=== PATIENT | female | born 1970 | race Caucasian/White ===

== ENCOUNTER 2017-08-20 12:58 | Inpatient (IN) | payer MEDICAID ==
[~2017-08-20] VITALS: Ht 160 cm; Wt 123.4 kg
[2017-08-20] MEDS ORDERED: ACETAMINOPHEN 500 MG TAB PO ONE ×2 (13:18→13:30)
[2017-08-20 14:52] LABS: Hematocrit 42.4 % (36.0-46.0); Hemoglobin 14.1 g/dL (12.2-16.2); Mean Corpuscular Hemoglobin 28.1 pg (28.0-32.0); Mean Corpuscular Hgb Conc. 33.3 g/dL (32.0-36.0); Mean Corpuscular Volume 84.5 fL (80.0-100.0); Platelet Count (auto) 292 10^3/uL (140-450); Red Blood Cells 5.02 10^6/uL (4.0-5.20); Red Cell Distribution Width 14.6 % (11.8-14.3); White Blood Cell 27.8 10^3/uL (4.4-10.8)
[2017-08-20] MEDS ORDERED: cefTRIAXone 1GM/10ml IVPUSH 10 ML IV ONE (15:00)
[2017-08-20] MEDS ORDERED: AZITHROMYCIN 500MG/ 250ML 250 ML IV ONE (15:00)
[2017-08-20 15:10] LABS: Albumin 2.5 g/dL (3.4-5.0); BUN/Creatinine Ratio 18.9; Bilirubin, Total 0.8 mg/dL (0.2-1.0); Calcium 9.2 mg/dL (8.5-10.1); Potassium 3.5 mmol/L (3.5-5.1); Total Protein 7.6 g/dL (6.4-8.2)
[2017-08-20 15:34] LABS: Basophils % (manual) 0 (0.0-2.0); Blast Cells 0; Eosinophils % (manual) 0 (0-7); Metamyelocytes % 0; Myelocytes % 0; Promyelocytes % 0; Reactive Lymphocytes 0
[2017-08-20] MEDS ORDERED: OSELTAMIVIR 75 MG CAP PO ONE ×2 (15:57→16:00)
[2017-08-20 17:00] LABS: Band Neutrophils % (manual) 6; Lymphocytes % (manual) 10 (10.0-50.0); Monocytes % (manual) 2 (0-12)
[2017-08-20] MEDS ORDERED: SODIUM CHLORIDE 0.9% 1,000 ML IV ONE ×2 (18:00)
[2017-08-20] MEDS ORDERED: DEXTROSE (50%) 50ML SYRG IV PRN (18:30)
[2017-08-20] MEDS ORDERED: IBUPROFEN 400 MG TAB PO PRN (18:30)
[2017-08-20] MEDS ORDERED: SODIUM CHLORIDE 0.9% 1,000 ML IV SCH (18:51)
[2017-08-20] MEDS ORDERED: ONDANSETRON HCL 4 MG/2 ML VIAL IV PRN (19:00)
[2017-08-20] MEDS ORDERED: HYDROcodone-ACET 5/325MG TAB PO PRN (19:00)
[2017-08-20] MEDS ORDERED: MORPHINE SULFATE 4 MG/ML SYR/VIAL IV PRN (19:00)
[2017-08-20] MEDS ORDERED: DOCUSATE SOD 100 MG CAP PO PRN (19:00)
[2017-08-20 21:00] VITALS: BP 123/67
[2017-08-20 22:00] VITALS: BP 120/67
[2017-08-20] MEDS ORDERED: PREGABALIN CAPSULE 75 MG CAP PO SCH (22:00)
[2017-08-20] MEDS: ACCU-CHEK COMFORT CURVE STRIP VI SCH (22:00)
[2017-08-20] MEDS: InsuLIN REG 1unit/0.01ml Soln (100units/ml) SC SCH (22:00)
[2017-08-20] MEDS: ACETAMINOPHEN 325 MG TAB PO PRN (22:07)
[2017-08-20] MEDS: FAMOTIDINE 20 MG TAB PO SCH (22:13)
[2017-08-20 22:21] LABS: Lactic Acid w/Reflex 2.7 mmol/L (0.4-2.0)
[2017-08-21] VITALS (7 sets, daily range): BP systolic 81–123; BP diastolic 60–71
[2017-08-21] MEDS: ALBUTEROL SULF 2.5 MG/0.5ML(0.5%) NEB SOLN NEB SCH ×4 (00:25→18:59)
[2017-08-21] MEDS: IPRATROPIUM BROM 0.5 MG/2.5ML INH SOL NEB SCH ×4 (00:25→18:59)
[2017-08-21 01:20] LABS: Urine Bacteria FEW /hpf (None Seen); Urine Blood Negative /uL (Negative); Urine Specific Gravity 1.015 (1.001-1.035); Urine WBC 1 /hpf (0 - 5)
[2017-08-21] MEDS ORDERED: SODIUM CHLORIDE 0.9% 500 ML IV ONE (02:15)
[2017-08-21] MEDS ORDERED: SODIUM CHLORIDE 0.9% 1,000 ML IV SCH (02:15)
[2017-08-21 06:01] LABS: Basophils # (auto) 0.1 uL; Basophils % (auto) 0.3 % (0.0-2.0); Eosinophils # (auto) 0.1 uL; Eosinophils % (auto) 0.2 % (0.0-7.0); Hemoglobin 12.9 g/dL (12.2-16.2); Lymphocytes # (auto) 2.2 uL; Mean Corpuscular Hemoglobin 28.4 pg (28.0-32.0); Mean Corpuscular Hgb Conc. 33.2 g/dL (32.0-36.0); Mean Corpuscular Volume 85.7 fL (80.0-100.0); Monocytes # (auto) 1.9 uL; Monocytes % (auto) 7.1 % (0.0-12.0); Neutrophils % (auto) 84.4 % (37.0-80.0); Nucleated Red Blood Cells % 0.1 %; Platelet Count (auto) 265 10^3/uL (140-450); Red Blood Cells 4.55 10^6/uL (4.0-5.20); Red Cell Distribution Width 14.7 % (11.8-14.3); White Blood Cell 27.3 10^3/uL (4.4-10.8)
[2017-08-21] MEDS ORDERED: PREG50CA PO (06:06)
[2017-08-21 06:18] LABS: Albumin 2.2 g/dL (3.4-5.0); BUN/Creatinine Ratio 16.3; Bilirubin, Total 0.6 mg/dL (0.2-1.0); Calcium 8.5 mg/dL (8.5-10.1); Potassium 4.2 mmol/L (3.5-5.1)
[2017-08-21] MEDS: OSELTAMIVIR 75 MG CAP PO SCH ×2 (06:35→18:00)
[2017-08-21] MEDS: InsuLIN REG 1unit/0.01ml Soln (100units/ml) SC SCH ×4 (07:00→23:56)
[2017-08-21] MEDS ORDERED: PREGABALIN 25 MG CAP PO SCH (07:00)
[2017-08-21] MEDS: ACCU-CHEK COMFORT CURVE STRIP VI SCH ×4 (07:00→22:00)
[2017-08-21] MEDS: Boost Glucose Control 8 Ounces PO SCH ×3 (08:00→18:00)
[2017-08-21] MEDS: AZITHROMYCIN 500MG/ 250ML 250 ML IV SCH (10:32)
[2017-08-21] MEDS: cefTRIAXone 1GM/10ml IVPUSH 10 ML IV SCH (10:32)
[2017-08-21] MEDS: FAMOTIDINE 20 MG TAB PO SCH ×2 (10:33→23:56)
[2017-08-21] MEDS: LORATADINE 10 MG TAB PO SCH (10:33)
[2017-08-21] MEDS: B-COMPLEX W/ C & FOLIC ACID(NEPHROVITE TAB) PO SCH (10:33)
[2017-08-21] MEDS: MULTIPLE VITAMIN TAB PO SCH (10:33)
[2017-08-21] MEDS ORDERED: FUROSEMIDE 20 MG/2 ML VIAL IV ONE (12:45)
[2017-08-21] MEDS: methylPREDNISolone SOD SUCC 40 MG/ML VL IV SCH ×2 (13:07→20:51)
[2017-08-21] MEDS ORDERED: SODIUM CHLORIDE 0.9% 250 ML IV ONE (17:15)
[2017-08-21] MEDS: PREGABALIN CAPSULE 75 MG CAP PO SCH (23:56)
[2017-08-22] VITALS (7 sets, daily range): BP systolic 95–145; BP diastolic 60–87
[2017-08-22] MEDS: ALBUTEROL SULF 2.5 MG/0.5ML(0.5%) NEB SOLN NEB SCH ×4 (00:21→19:01)
[2017-08-22] MEDS: IPRATROPIUM BROM 0.5 MG/2.5ML INH SOL NEB SCH ×4 (00:21→19:00)
[2017-08-22] MEDS: methylPREDNISolone SOD SUCC 40 MG/ML VL IV SCH ×2 (04:35→12:48)
[2017-08-22 06:39] LABS: Hematocrit 39.7 % (36.0-46.0); Hemoglobin 13.3 g/dL (12.2-16.2); Mean Corpuscular Hemoglobin 28.5 pg (28.0-32.0); Mean Corpuscular Hgb Conc. 33.4 g/dL (32.0-36.0); Mean Corpuscular Volume 85.3 fL (80.0-100.0); Platelet Count (auto) 285 10^3/uL (140-450); Red Blood Cells 4.65 10^6/uL (4.0-5.20); White Blood Cell 12.7 10^3/uL (4.4-10.8)
[2017-08-22 06:56] LABS: Calcium 9.2 mg/dL (8.5-10.1); Potassium 4.3 mmol/L (3.5-5.1)
[2017-08-22 06:57] LABS: Basophils % (manual) 0 (0.0-2.0); Blast Cells 0; Eosinophils % (manual) 0 (0-7); Metamyelocytes % 0; Myelocytes % 0; Promyelocytes % 0; Reactive Lymphocytes 0
[2017-08-22] MEDS: OSELTAMIVIR 75 MG CAP PO SCH ×2 (07:04→18:44)
[2017-08-22] MEDS: PREGABALIN 25 MG CAP PO SCH (07:04)
[2017-08-22 07:05] LABS: Alcohol, Urine < 3.0 mg/dL (0-5); Amphetamine Screen, Urine NEGATIVE (NEGATIVE); Barbiturate Scree,Urine NEGATIVE (NEGATIVE); Benzodiazephine Screen, Urine NEGATIVE (NEGATIVE); Cannabinoid Screen, Urine NEGATIVE (NEGATIVE); Cocaine Screen, Urine NEGATIVE (NEGATIVE); Opiate Scree,Urine NEGATIVE (NEGATIVE); Phencyclidine Screen, Urine NEGATIVE (NEGATIVE)
[2017-08-22] MEDS: InsuLIN REG 1unit/0.01ml Soln (100units/ml) SC SCH ×4 (07:19→22:22)
[2017-08-22] MEDS: ACCU-CHEK COMFORT CURVE STRIP VI SCH ×4 (07:19→22:22)
[2017-08-22] MEDS: Boost Glucose Control 8 Ounces PO SCH ×3 (08:00→18:27)
[2017-08-22] MEDS: cefTRIAXone 1GM/10ml IVPUSH 10 ML IV SCH (09:00)
[2017-08-22] MEDS: AZITHROMYCIN 500MG/ 250ML 250 ML IV SCH (11:16)
[2017-08-22] MEDS: B-COMPLEX W/ C & FOLIC ACID(NEPHROVITE TAB) PO SCH (11:24)
[2017-08-22] MEDS: MULTIPLE VITAMIN TAB PO SCH (11:24)
[2017-08-22] MEDS: LORATADINE 10 MG TAB PO SCH (11:24)
[2017-08-22] MEDS: FAMOTIDINE 20 MG TAB PO SCH ×2 (11:24→22:21)
[2017-08-22 11:25] LABS: Band Neutrophils % (manual) 6; Lymphocytes % (manual) 16 (10.0-50.0); Monocytes % (manual) 6 (0-12)
[2017-08-22] MEDS ORDERED: IOHEXOL 350 MG/ML 100ML IJ ONE (15:41)
[2017-08-22 16:27] LABS: INR 0.92 (0.9-1.15); Partial Thromboplastin Time 26.6 sec (22.64-33.71)
[2017-08-22] MEDS: ACETAMINOPHEN 325 MG TAB PO PRN (20:18)
[2017-08-22] MEDS: PREGABALIN CAPSULE 75 MG CAP PO SCH (22:21)
[2017-08-22] MEDS: TEMAZEPAM 15 MG CAP PO PRN (22:44)
[2017-08-23] MEDS: IPRATROPIUM BROM 0.5 MG/2.5ML INH SOL NEB SCH ×5 (00:14→23:43)
[2017-08-23] MEDS: ALBUTEROL SULF 2.5 MG/0.5ML(0.5%) NEB SOLN NEB SCH ×5 (00:14→23:43)
[2017-08-23] MEDS: methylPREDNISolone SOD SUCC 40 MG/ML VL IV SCH ×3 (01:46→23:33)
[2017-08-23 05:30] VITALS: BP 121/80
[2017-08-23 06:14] LABS: Hematocrit 39.8 % (36.0-46.0); Hemoglobin 13.1 g/dL (12.2-16.2); Mean Corpuscular Hemoglobin 28.1 pg (28.0-32.0); Mean Corpuscular Volume 85.4 fL (80.0-100.0); Platelet Count (auto) 335 10^3/uL (140-450); Red Blood Cells 4.66 10^6/uL (4.0-5.20); Red Cell Distribution Width 15.3 % (11.8-14.3); White Blood Cell 14.7 10^3/uL (4.4-10.8)
[2017-08-23 06:23] LABS: Basophils % (manual) 0 (0.0-2.0); Blast Cells 0; Eosinophils % (manual) 0 (0-7); Myelocytes % 0; Promyelocytes % 0; Reactive Lymphocytes 0
[2017-08-23 06:30] LABS: BUN/Creatinine Ratio 30.8; Calcium 9.1 mg/dL (8.5-10.1); Potassium 4.6 mmol/L (3.5-5.1)
[2017-08-23] MEDS: OSELTAMIVIR 75 MG CAP PO SCH ×2 (07:06→17:47)
[2017-08-23] MEDS: PREGABALIN 25 MG CAP PO SCH (07:07)
[2017-08-23] MEDS: ACCU-CHEK COMFORT CURVE STRIP VI SCH ×4 (07:07→21:45)
[2017-08-23] MEDS: InsuLIN REG 1unit/0.01ml Soln (100units/ml) SC SCH ×4 (07:07→21:54)
[2017-08-23] MEDS: Boost Glucose Control 8 Ounces PO SCH ×3 (08:34→17:47)
[2017-08-23 09:00] VITALS: BP 124/72
[2017-08-23] MEDS: B-COMPLEX W/ C & FOLIC ACID(NEPHROVITE TAB) PO SCH (09:04)
[2017-08-23] MEDS: FAMOTIDINE 20 MG TAB PO SCH ×2 (09:04→21:38)
[2017-08-23] MEDS: LORATADINE 10 MG TAB PO SCH (09:04)
[2017-08-23] MEDS: cefTRIAXone 1GM/10ml IVPUSH 10 ML IV SCH (09:04)
[2017-08-23] MEDS: MULTIPLE VITAMIN TAB PO SCH (09:04)
[2017-08-23] MEDS: AZITHROMYCIN 500MG/ 250ML 250 ML IV SCH (09:04)
[2017-08-23 10:06] LABS: Band Neutrophils % (manual) 4; Lymphocytes % (manual) 13 (10.0-50.0); Metamyelocytes % 1; Monocytes % (manual) 10 (0-12)
[2017-08-23 13:00] VITALS: BP 131/84
[2017-08-23] MEDS: LEVOFLOXACIN 500MG 100 ML IV SCH (14:18)
[2017-08-23 17:34] VITALS: BP 144/90
[2017-08-23] MEDS: ALPRAZolam 0.5 MG TAB PO PRN (21:37)
[2017-08-23] MEDS: PREGABALIN CAPSULE 75 MG CAP PO SCH (21:37)
[2017-08-23 22:30] VITALS: BP 138/98
[2017-08-24] MEDS: ACETAMINOPHEN 325 MG TAB PO PRN (01:20)
[2017-08-24 04:59] VITALS: BP 125/78
[2017-08-24] MEDS: IPRATROPIUM BROM 0.5 MG/2.5ML INH SOL NEB SCH ×3 (05:40→18:23)
[2017-08-24] MEDS: ALBUTEROL SULF 2.5 MG/0.5ML(0.5%) NEB SOLN NEB SCH ×3 (05:40→18:23)
[2017-08-24 05:55] LABS: Hemoglobin 13.7 g/dL (12.2-16.2); Mean Corpuscular Hemoglobin 28.7 pg (28.0-32.0); Mean Corpuscular Hgb Conc. 33.5 g/dL (32.0-36.0); Mean Corpuscular Volume 85.7 fL (80.0-100.0); Platelet Count (auto) 355 10^3/uL (140-450); Red Blood Cells 4.79 10^6/uL (4.0-5.20); Red Cell Distribution Width 14.8 % (11.8-14.3); White Blood Cell 12.5 10^3/uL (4.4-10.8)
[2017-08-24 06:19] LABS: BUN/Creatinine Ratio 29.6; Calcium 8.7 mg/dL (8.5-10.1); Potassium 4.4 mmol/L (3.5-5.1)
[2017-08-24] MEDS: OSELTAMIVIR 75 MG CAP PO SCH ×2 (06:22→17:23)
[2017-08-24] MEDS: PREGABALIN 25 MG CAP PO SCH (06:22)
[2017-08-24] MEDS: ACCU-CHEK COMFORT CURVE STRIP VI SCH ×4 (06:24→21:31)
[2017-08-24 06:33] LABS: Basophils % (manual) 0 (0.0-2.0)
[2017-08-24 06:34] LABS: Blast Cells 0; Promyelocytes % 0; Reactive Lymphocytes 0
[2017-08-24] MEDS: InsuLIN REG 1unit/0.01ml Soln (100units/ml) SC SCH ×4 (06:34→21:31)
[2017-08-24] MEDS: Boost Glucose Control 8 Ounces PO SCH ×3 (08:00→17:24)
[2017-08-24 08:56] LABS: Band Neutrophils % (manual) 5; Eosinophils % (manual) 1 (0-7); Lymphocytes % (manual) 21 (10.0-50.0); Metamyelocytes % 1; Monocytes % (manual) 3 (0-12); Myelocytes % 1
[2017-08-24 09:00] VITALS: BP 128/83
[2017-08-24] MEDS: FAMOTIDINE 20 MG TAB PO SCH ×2 (09:57→21:18)
[2017-08-24] MEDS: MULTIPLE VITAMIN TAB PO SCH (09:57)
[2017-08-24] MEDS: B-COMPLEX W/ C & FOLIC ACID(NEPHROVITE TAB) PO SCH (09:57)
[2017-08-24] MEDS: LEVOFLOXACIN 500MG 100 ML IV SCH (09:57)
[2017-08-24] MEDS: LORATADINE 10 MG TAB PO SCH (09:57)
[2017-08-24] MEDS: methylPREDNISolone SOD SUCC 40 MG/ML VL IV SCH (12:19)
[2017-08-24 12:30] VITALS: BP 114/69
[2017-08-24 16:36] VITALS: BP 119/65
[2017-08-24] MEDS: TEMAZEPAM 15 MG CAP PO PRN (21:18)
[2017-08-24] MEDS: PREGABALIN CAPSULE 75 MG CAP PO SCH (21:18)
[2017-08-24 22:00] VITALS: BP 110/65
[2017-08-25] MEDS: ALBUTEROL SULF 2.5 MG/0.5ML(0.5%) NEB SOLN NEB SCH ×4 (00:30→18:34)
[2017-08-25] MEDS: IPRATROPIUM BROM 0.5 MG/2.5ML INH SOL NEB SCH ×4 (00:30→18:34)
[2017-08-25 01:52] VITALS: BP 110/65
[2017-08-25 05:00] VITALS: BP 117/86
[2017-08-25] MEDS: PREGABALIN 25 MG CAP PO SCH (05:52)
[2017-08-25] MEDS: InsuLIN REG 1unit/0.01ml Soln (100units/ml) SC SCH ×4 (05:52→22:37)
[2017-08-25] MEDS: OSELTAMIVIR 75 MG CAP PO SCH (05:52)
[2017-08-25] MEDS: ACCU-CHEK COMFORT CURVE STRIP VI SCH ×4 (05:53→22:37)
[2017-08-25 06:15] LABS: BUN/Creatinine Ratio 29.3; Calcium 8.8 mg/dL (8.5-10.1); Potassium 4.3 mmol/L (3.5-5.1)
[2017-08-25 07:47] LABS: Hematocrit 44.2 % (36.0-46.0); Hemoglobin 14.5 g/dL (12.2-16.2); Mean Corpuscular Hgb Conc. 32.7 g/dL (32.0-36.0); Mean Corpuscular Volume 85.6 fL (80.0-100.0); Platelet Count (auto) 381 10^3/uL (140-450); Red Blood Cells 5.16 10^6/uL (4.0-5.20); Red Cell Distribution Width 14.9 % (11.8-14.3)
[2017-08-25 08:17] LABS: Basophils % (manual) 0 (0.0-2.0); Blast Cells 0; Promyelocytes % 0
[2017-08-25 09:00] VITALS: BP 135/75
[2017-08-25] MEDS: methylPREDNISolone SOD SUCC 40 MG/ML VL IV SCH (09:19)
[2017-08-25] MEDS: B-COMPLEX W/ C & FOLIC ACID(NEPHROVITE TAB) PO SCH (09:19)
[2017-08-25] MEDS: LEVOFLOXACIN 500MG 100 ML IV SCH (09:19)
[2017-08-25] MEDS: MULTIPLE VITAMIN TAB PO SCH (09:19)
[2017-08-25] MEDS: LORATADINE 10 MG TAB PO SCH (09:19)
[2017-08-25] MEDS: Boost Glucose Control 8 Ounces PO SCH ×3 (09:20→17:24)
[2017-08-25] MEDS: FAMOTIDINE 20 MG TAB PO SCH ×2 (09:20→22:18)
[2017-08-25 11:15] LABS: Band Neutrophils % (manual) 2; Eosinophils % (manual) 2 (0-7); Lymphocytes % (manual) 26 (10.0-50.0); Metamyelocytes % 1; Monocytes % (manual) 1 (0-12); Myelocytes % 2; Reactive Lymphocytes 1
[2017-08-25] MEDS ORDERED: LEVOFLOXACIN 250MG 50 ML IV ONE (12:00)
[2017-08-25 13:00] VITALS: BP 128/85
[2017-08-25 16:00] VITALS: BP 121/80
[2017-08-25] MEDS: CEFEPIME HYDROCHLORIDE 2 GM in SODIUM CHL 0.9% 50 ML IV SCH (17:03)
[2017-08-25 22:00] VITALS: BP 128/70
[2017-08-25] MEDS: TEMAZEPAM 15 MG CAP PO PRN (22:18)
[2017-08-25] MEDS: PREGABALIN CAPSULE 75 MG CAP PO SCH (22:18)
[2017-08-26] MEDS: CEFEPIME HYDROCHLORIDE 2 GM in SODIUM CHL 0.9% 50 ML IV SCH ×2 (01:14→12:53)
[2017-08-26 05:00] VITALS: BP 131/71
[2017-08-26] MEDS: IPRATROPIUM BROM 0.5 MG/2.5ML INH SOL NEB SCH ×4 (06:00→18:42)
[2017-08-26] MEDS: ALBUTEROL SULF 2.5 MG/0.5ML(0.5%) NEB SOLN NEB SCH ×4 (06:00→18:42)
[2017-08-26 06:17] LABS: Basophils # (auto) 0.1 uL; Basophils % (auto) 0.8 % (0.0-2.0); Eosinophils # (auto) 0.2 uL; Eosinophils % (auto) 1.3 % (0.0-7.0); Hematocrit 46.4 % (36.0-46.0); Hemoglobin 15.2 g/dL (12.2-16.2); Lymphocytes # (auto) 4.6 uL; Lymphocytes % (auto) 31.3 % (10.0-50.0); Mean Corpuscular Hemoglobin 28.2 pg (28.0-32.0); Mean Corpuscular Hgb Conc. 32.8 g/dL (32.0-36.0); Monocytes # (auto) 0.5 uL; Monocytes % (auto) 3.6 % (0.0-12.0); Neutrophils # (auto) 9.3 uL; Nucleated Red Blood Cells % 0.1 %; Platelet Count (auto) 410 10^3/uL (140-450); Red Blood Cells 5.39 10^6/uL (4.0-5.20); Red Cell Distribution Width 14.9 % (11.8-14.3); White Blood Cell 14.8 10^3/uL (4.4-10.8)
[2017-08-26 06:28] LABS: Potassium 4.3 mmol/L (3.5-5.1)
[2017-08-26 06:30] LABS: BUN/Creatinine Ratio 27.6; Calcium 8.9 mg/dL (8.5-10.1)
[2017-08-26] MEDS: InsuLIN REG 1unit/0.01ml Soln (100units/ml) SC SCH ×4 (06:31→21:43)
[2017-08-26] MEDS: ACCU-CHEK COMFORT CURVE STRIP VI SCH ×4 (06:31→21:41)
[2017-08-26] MEDS: PREGABALIN 25 MG CAP PO SCH (06:46)
[2017-08-26 09:00] VITALS: BP 114/70
[2017-08-26] MEDS: Boost Glucose Control 8 Ounces PO SCH ×3 (09:39→18:00)
[2017-08-26] MEDS: LORATADINE 10 MG TAB PO SCH (09:39)
[2017-08-26] MEDS: MULTIPLE VITAMIN TAB PO SCH (09:39)
[2017-08-26] MEDS: B-COMPLEX W/ C & FOLIC ACID(NEPHROVITE TAB) PO SCH (09:39)
[2017-08-26] MEDS: FAMOTIDINE 20 MG TAB PO SCH ×2 (09:39→21:34)
[2017-08-26] MEDS: methylPREDNISolone SOD SUCC 40 MG/ML VL IV SCH (09:39)
[2017-08-26] MEDS: LEVOFLOXACIN 750MG 150 ML IV SCH (09:39)
[2017-08-26 13:00] VITALS: BP 127/77
[2017-08-26 17:00] VITALS: BP 137/81
[2017-08-26] MEDS: PREGABALIN CAPSULE 75 MG CAP PO SCH (21:34)
[2017-08-26] MEDS: TEMAZEPAM 15 MG CAP PO PRN (21:34)
[2017-08-26 22:00] VITALS: BP 133/83
[2017-08-27] VITALS (7 sets, daily range): BP systolic 105–121; BP diastolic 68–80
[2017-08-27] MEDS: CEFEPIME HYDROCHLORIDE 2 GM in SODIUM CHL 0.9% 50 ML IV SCH ×2 (01:08→13:49)
[2017-08-27] MEDS: IPRATROPIUM BROM 0.5 MG/2.5ML INH SOL NEB SCH ×4 (05:24→18:00)
[2017-08-27] MEDS: ALBUTEROL SULF 2.5 MG/0.5ML(0.5%) NEB SOLN NEB SCH ×4 (05:24→18:00)
[2017-08-27] MEDS: PREGABALIN 25 MG CAP PO SCH (06:11)
[2017-08-27] MEDS: ACCU-CHEK COMFORT CURVE STRIP VI SCH ×4 (06:11→21:09)
[2017-08-27] MEDS: InsuLIN REG 1unit/0.01ml Soln (100units/ml) SC SCH ×4 (06:48→22:00)
[2017-08-27] MEDS: Boost Glucose Control 8 Ounces PO SCH ×3 (07:29→17:14)
[2017-08-27] MEDS: LEVOFLOXACIN 750MG 150 ML IV SCH (10:17)
[2017-08-27] MEDS: methylPREDNISolone SOD SUCC 40 MG/ML VL IV SCH (10:18)
[2017-08-27] MEDS: LORATADINE 10 MG TAB PO SCH (10:19)
[2017-08-27] MEDS: FAMOTIDINE 20 MG TAB PO SCH ×2 (10:19→21:09)
[2017-08-27] MEDS: B-COMPLEX W/ C & FOLIC ACID(NEPHROVITE TAB) PO SCH (10:19)
[2017-08-27] MEDS: MULTIPLE VITAMIN TAB PO SCH (10:19)
[2017-08-27] MEDS: ALPRAZolam 0.5 MG TAB PO PRN (10:27)
[2017-08-27] MEDS: TEMAZEPAM 15 MG CAP PO PRN (20:27)
[2017-08-27] MEDS: PREGABALIN CAPSULE 75 MG CAP PO SCH (21:09)
[2017-08-28] MEDS: CEFEPIME HYDROCHLORIDE 2 GM in SODIUM CHL 0.9% 50 ML IV SCH ×2 (01:00→14:59)
[2017-08-28 05:00] VITALS: BP 108/57
[2017-08-28] MEDS: PREGABALIN 25 MG CAP PO SCH (05:57)
[2017-08-28] MEDS: ACCU-CHEK COMFORT CURVE STRIP VI SCH ×2 (05:57→11:29)
[2017-08-28] MEDS: IPRATROPIUM BROM 0.5 MG/2.5ML INH SOL NEB SCH ×2 (06:00)
[2017-08-28] MEDS: ALBUTEROL SULF 2.5 MG/0.5ML(0.5%) NEB SOLN NEB SCH ×2 (06:00)
[2017-08-28] MEDS: InsuLIN REG 1unit/0.01ml Soln (100units/ml) SC SCH ×2 (06:01→12:40)
[2017-08-28 06:10] LABS: Basophils # (auto) 0.1 uL; Basophils % (auto) 0.3 % (0.0-2.0); Eosinophils # (auto) 0.1 uL; Eosinophils % (auto) 0.7 % (0.0-7.0); Hematocrit 45.9 % (36.0-46.0); Hemoglobin 15.1 g/dL (12.2-16.2); Lymphocytes # (auto) 3.8 uL; Lymphocytes % (auto) 21.8 % (10.0-50.0); Mean Corpuscular Hemoglobin 28.2 pg (28.0-32.0); Mean Corpuscular Hgb Conc. 32.8 g/dL (32.0-36.0); Monocytes # (auto) 0.6 uL; Monocytes % (auto) 3.7 % (0.0-12.0); Neutrophils # (auto) 12.7 uL; Neutrophils % (auto) 73.5 % (37.0-80.0); Nucleated Red Blood Cells % 0.1 %; Platelet Count (auto) 425 10^3/uL (140-450); Red Blood Cells 5.33 10^6/uL (4.0-5.20); Red Cell Distribution Width 14.8 % (11.8-14.3); White Blood Cell 17.2 10^3/uL (4.4-10.8)
[2017-08-28 06:30] LABS: BUN/Creatinine Ratio 27.9; Calcium 8.3 mg/dL (8.5-10.1); Potassium 4.3 mmol/L (3.5-5.1)
[2017-08-28] MEDS: Boost Glucose Control 8 Ounces PO SCH ×2 (07:30→11:29)
[2017-08-28 09:10] VITALS: BP 111/74
[2017-08-28] MEDS: MULTIPLE VITAMIN TAB PO SCH (09:57)
[2017-08-28] MEDS: methylPREDNISolone SOD SUCC 40 MG/ML VL IV SCH (09:57)
[2017-08-28] MEDS: LORATADINE 10 MG TAB PO SCH (09:57)
[2017-08-28] MEDS: FAMOTIDINE 20 MG TAB PO SCH (09:57)
[2017-08-28] MEDS: LEVOFLOXACIN 750MG 150 ML IV SCH (09:57)
[2017-08-28] MEDS: B-COMPLEX W/ C & FOLIC ACID(NEPHROVITE TAB) PO SCH (09:57)
[2017-08-28] MEDS ORDERED: TEMAZEPAM 15 MG CAP PO PRN (12:45)
[2017-08-28] MEDS ORDERED: MORPHINE SULFATE 4 MG/ML SYR/VIAL IV PRN (12:45)
[2017-08-28] MEDS ORDERED: HYDROcodone-ACET 5/325MG TAB PO PRN (12:45)
[2017-08-28 13:00] VITALS: BP 108/57
[2017-08-29] MEDS ORDERED: methylPREDNISolone SOD SUCC 40 MG/ML VL IV SCH (10:00)
[2017-09-06] MEDS ORDERED: HYDR1CAP27 PO (12:37)
[2017-09-06] MEDS ORDERED: ALBU0.084 (12:37)
[2017-09-06] MEDS ORDERED: PAR20T PO (12:37)
[2017-09-06] MEDS ORDERED: GABA300C10 (12:37)
[2017-09-06] MEDS ORDERED: IPR002IS (12:37)
[2017-09-07] MEDS ORDERED: FAM20T PO (16:05)
[2017-09-07] MEDS ORDERED: PRE5T PO (16:05)
== END 2017-08-28 16:50 | DRG 720 ==
LOC: ER 12:58 → OVERFLOW 12:59 → CENTRAL 20:27
PROVIDERS: ADMIT Internal Medicine; ATTEND Hospitalist
DX: A41.9 Sepsis, unspecified organism (principal); J96.01 Acute respiratory failure with hypoxia; N17.9 Acute kidney failure, unspecified; J18.1 Lobar pneumonia, unspecified organism; E44.0 Moderate protein-calorie malnutrition; E11.21 Type 2 diabetes mellitus with diabetic nephropathy; J45.901 Unspecified asthma with (acute) exacerbation; E87.1 Hypo-osmolality and hyponatremia; E11.40 Type 2 diabetes mellitus with diabetic neuropathy, unspecified; J10.1 Influenza due to other identified influenza virus with other respiratory manifestations; E66.9 Obesity, unspecified; N18.2 Chronic kidney disease, stage 2 (mild); E11.22 Type 2 diabetes mellitus with diabetic chronic kidney disease; E11.65 Type 2 diabetes mellitus with hyperglycemia; E66.2 Morbid (severe) obesity with alveolar hypoventilation; F31.9 Bipolar disorder, unspecified; G47.33 Obstructive sleep apnea (adult) (pediatric); T38.0X5A Adverse effect of glucocorticoids and synthetic analogues, initial encounter; Z91.19 Patient's noncompliance with other medical treatment and regimen; Z68.42 Body mass index [BMI] 45.0-49.9, adult
CPT/HCPCS: 36415; 36600; 71045; 71046; 71275; 80048; 80053; 80307; 81001; 82140; 82805; 82962; 83036; 83605; 84443; 84702; 85007; 85025; 85027; 85610; 85730; 87040; 87278; 87804; 93306; 94640; 94660; 96365; 96366; 96375; J1815; J1956

== ENCOUNTER 2017-10-13 10:39 | Emergency (ER) | payer MEDICAID ==
[~2017-10-13] VITALS: Ht 162.6 cm; Wt 124.3 kg
[~2017-10-13 10:39] MED LIST: ALBU0.084; FAM20T PO; GABA300C10; HYDR1CAP27 PO; IPR002IS; PAR20T PO; PRE5T PO; PREG50CA PO
[2017-10-13 10:51] VITALS: BP 181/82
[2017-10-13] MEDS ORDERED: methylPREDNISolone SOD SUCC 125 MG/2 ML VL IM ONE (11:15)
[2017-10-13] MEDS ORDERED: cefTRIAXone SOD 1,000 MG VL IM ONE (11:15)
== END 2017-10-13 12:11 | disposition home or self-care (01) ==
LOC: ER 10:39
DX: J03.90 Acute tonsillitis, unspecified (principal); E11.9 Type 2 diabetes mellitus without complications; Z88.1 Allergy status to other antibiotic agents
CPT/HCPCS: 96372; 99284; J0696; J2930

== ENCOUNTER 2018-03-07 18:08 | Emergency (ER) | payer MEDICAID ==
[~2018-03-07] VITALS: Ht 165.1 cm; Wt 117.9 kg
[2018-03-07 18:28] VITALS: BP 142/94
[2018-03-07 19:11] LABS: Basophils # (auto) 0.1 uL; Basophils % (auto) 0.8 % (0.0-2.0); Eosinophils # (auto) 0.2 uL; Eosinophils % (auto) 2.4 % (0.0-7.0); Hematocrit 48.8 % (36.0-46.0); Hemoglobin 16.8 g/dL (12.2-16.2); Lymphocytes # (auto) 3.4 uL; Lymphocytes % (auto) 33.2 % (10.0-50.0); Mean Corpuscular Hemoglobin 29.2 pg (28.0-32.0); Mean Corpuscular Hgb Conc. 34.5 g/dL (32.0-36.0); Mean Corpuscular Volume 84.7 fL (80.0-100.0); Monocytes # (auto) 0.8 uL; Monocytes % (auto) 8.1 % (0.0-12.0); Neutrophils # (auto) 5.8 uL; Neutrophils % (auto) 55.5 % (37.0-80.0); Nucleated Red Blood Cells % 0.2 %; Platelet Count (auto) 289 10^3/uL (140-450); Red Blood Cells 5.76 10^6/uL (4.0-5.20); White Blood Cell 10.4 10^3/uL (4.4-10.8)
[2018-03-07 19:45] LABS: Albumin 3.9 g/dL (3.4-5.0); BUN/Creatinine Ratio 17.1; Bilirubin, Total 0.4 mg/dL (0.2-1.0); Potassium 3.7 mmol/L (3.5-5.1); Total Protein 7.4 g/dL (6.4-8.2)
== END 2018-03-07 22:05 | disposition left against medical advice (07) ==
LOC: ER 18:08
DX: N93.9 Abnormal uterine and vaginal bleeding, unspecified (principal); Z53.21 Procedure and treatment not carried out due to patient leaving prior to being seen by health care provider
CPT/HCPCS: 36415; 80053; 85025